=== PATIENT | male | born 1995 | race Caucasian/White ===

== ENCOUNTER 2017-12-11 19:08 | Emergency (ER) | payer OTHER ==
--- NOTE | 2017-12-11 19:29 | UC ---
Complaint Male HPI - HPI Summary HPI Summary: Pt presents with recent exposure to Chlamydia. He tells me that earlier this week he had unprotected sexual intercourse with a female friend. She called him earlier today and notified him that she has chlamydia. He is here for treatment. No symptoms. - History of Current Complaint Stated Complaint: PERSONAL Time Seen by Provider: 12/11/17 19:19 Hx Obtained From: Patient - Allergies/Home Medications Allergies/Adverse Reactions: Allergies Allergy/AdvReac Type Severity Reaction Status Date / Time No Known Allergies Allergy Verified 12/11/17 19:39 Home Medications: Home Medications NK [No Home Medications Reported] 12/11/17 [History Confirmed 12/11/17] PMH/Surg Hx/FS Hx/Imm Hx Previously Healthy: Yes - Surgical History Surgical History: None - Family History Known Family History: Positive: Unknown - Social History Occupation: Student Lives: Dormitory/Roommates Alcohol Use: Occasionally Substance Use Type: None Smoking Status (MU): Never Smoked Tobacco Review of Systems Constitutional: Negative Skin: Negative Respiratory: Negative Cardiovascular: Negative Genitourinary: Negative Neurological: Negative Psychological: Negative All Other Systems Reviewed And Are Negative: Yes Physical Exam - Summary Physical Exam Summary: GENERAL: NAD. WDWN. No pain distress. SKIN: No rashes, sores, ulcers, masses, lesions. NECK: Supple. Nontender. No lymphadenopathy. CHEST: CTAB. No r/r/w. No accessory muscle use. Breathing comfortably and in no distress. CV: RRR. Without m/r/g. Pulses intact. Brisk cap refill. ABDOMEN: Soft. NTTP. No distention or guarding. No organomegaly. No CVA tenderness. Bowel sounds present x4. NEURO: Alert. CN II-XII grossly intact. PSYCH: Age appropriate behavior. Refused genital exam Triage Information Reviewed: Yes Complaint Male Course/Dx - Course Course Of Treatment: Pt declined treatment for gonorrhea and is only interested in treatment for chlamydia. Azithroymcin 1gm given tonight in clinic. Advised to refrain from sexual activity for one week. No urine sample taken tonight as he would not be positive for at least 2 weeks after exposure. - Differential Dx/Diagnosis Provider Diagnoses: Exposure to chlamydia Discharge - Sign-Out/Discharge Documenting (check all that apply): Discharge - Discharge Plan Condition: Stable Disposition: HOME Patient Education Materials: Chlamydia (ED) Referrals: Non Staff,Doctor [Primary Care Provider] - Additional Instructions: If you develop a fever, shortness of breath, chest pain, new or worsening symptoms - please call your PCP or go to the ED. 1) Please do not engage in sexual activity for at least 1 week from today. - Billing Disposition and Condition Condition: STABLE Disposition: HOME
[2017-12-11 19:39] VITALS: BP 133/35
[2017-12-11] MEDS ORDERED: Azithromycin TAB* 250 MG PO ONE (19:53)
== END 2017-12-11 20:19 | disposition home or self-care (01) ==
LOC: UCCORT 19:08
DX: Z20.2 Contact with and (suspected) exposure to infections with a predominantly sexual mode of transmission (principal)
CPT/HCPCS: 99201; A9270-GY; G0463